=== PATIENT | female | born 1990 | race Caucasian/White ===

== ENCOUNTER 2020-08-11 09:04 | Outpatient (RCR) | payer OTHER, SELFPAY ==
[2020-08-11 10:20] VITALS: BP 142/90; PULSE 97
[2020-08-11 10:49] LABS: Basophils Percent Auto 0.3 % (0.2-1.2); Eosinophils Absolute Auto 0.2 K/mm3 (0-0.3); Eosinophils Percent Auto 1.2 % (0-4.4); Hematocrit 37.6 % (37.0-47.0); Hemoglobin 12.3 g/dL (12.0-15.0); Immature Granulocyte Absolute 0.19 K/mm3 (0.00-0.031); Immature Granulocyte Percent A 1.5 % (0-0.5); Lymphocytes Absolute Auto 1.98 K/mm3 (0.9-3.2); Lymphocytes Percent Auto 15.3 % (18.3-44.2); Mean Corpuscular HGB Conc 32.7 g/dl (32-36); Mean Corpuscular Hemoglobin 26.4 pg (26-34); Mean Corpuscular Volume 80.7 fl (80-100); Mean Platelet Volume 9.8 fl (7.4-10.4); Monocytes Absolute Auto 0.7 K/mm3 (0.1-0.6); Monocytes Percent Auto 5.7 % (2.6-8.5); Neutrophils Absolute Auto 9.8 K/mm3 (1.3-6.7); Platelet Count Result 289 k/mm3 (150-375); Red Blood Count 4.66 M/mm3 (4.2-5.4); Red Cell Distribution Width 15.3 % (11.5-14.5); White Blood Count 12.9 K/mm3 (4.5-10.0)
[2020-08-11 10:54] LABS: Add Urine Microscopic? NO; Appearance Urine Clear (Clear); Bilirubin Urine Negative (Negative); Blood Urine Negative (Negative); Color Urine Straw (Yellow); Glucose Urine UA Negative (Negative); Ketones Urine Negative (Negative); Leukocyte Esterase Ur Negative LEU/UL (NEGATIVE); Nitrate Urine Negative (Negative); Protein Urine Negative (Negative); Specific Grav Ur 1.006 (1.001-1.035); Urobilinogen Urine Negative mg/dL (<2.0)
[2020-08-11 11:05] LABS: Alanine Aminotransferase 9 U/L (4-35); Albumin Level 3.3 g/dL (3.5-5.1); Alkaline Phosphatase 84 U/L (38-126); Anion Gap 7 mmol/L (8-16); Aspartate Amino Transferase 14 U/L (14-36); Bilirubin,Total 0.2 mg/dL (0.2-1.3); Blood Urea Nitrogen 11 mg/dL (7-17); Calcium 9.4 mg/dL (8.4-10.2); Carbon Dioxide 25 mmol/L (22-30); Chloride 104 mmol/L (98-107); Estimated Glomerular Filt Rate > 60; Glucose 125 mg/dL (65-105); Potassium 4.3 mmol/L (3.4-5.0); Sodium 136 mmol/L (137-145); Uric Acid 3.2 mg/dL (2.5-7.5)
== END 2020-08-21 08:01 | disposition home or self-care (01) ==
LOC: ANHOBOP 09:04
PROVIDERS: Visit Provider Obstetrics & Gynecology Gynecology
DX: O24.419 Gestational diabetes mellitus in pregnancy, unspecified control (principal); Z3A.38 38 weeks gestation of pregnancy
CPT/HCPCS: 36415; 59025; 80053; 81003; 84550; 85025

== ENCOUNTER 2020-08-18 05:50 | Inpatient (IN) | payer OTHER, SELFPAY ==
[2020-08-18] VITALS (39 sets, daily range): BP systolic 84–145; BP diastolic 64–102; PULSE 89–106; TEMP 35.8–36.2; BMI 47.1
[2020-08-18 06:57] LABS: Basophils Percent Auto 0.3 % (0.2-1.2); Eosinophils Absolute Auto 0.1 K/mm3 (0-0.3); Eosinophils Percent Auto 1.2 % (0-4.4); Immature Granulocyte Absolute 0.16 K/mm3 (0.00-0.031); Immature Granulocyte Percent A 1.4 % (0-0.5); Lymphocytes Absolute Auto 2.06 K/mm3 (0.9-3.2); Lymphocytes Percent Auto 18.2 % (18.3-44.2); Mean Corpuscular HGB Conc 32.4 g/dl (32-36); Mean Corpuscular Volume 80.1 fl (80-100); Mean Platelet Volume 9.7 fl (7.4-10.4); Monocytes Absolute Auto 0.5 K/mm3 (0.1-0.6); Monocytes Percent Auto 4.5 % (2.6-8.5); Neutrophils Absolute Auto 8.4 K/mm3 (1.3-6.7); Neutrophils Percent Auto 74.4 % (45.5-73.1); Platelet Count Result 266 k/mm3 (150-375); Red Blood Count 4.62 M/mm3 (4.2-5.4); Red Cell Distribution Width 15.4 % (11.5-14.5); White Blood Count 11.3 K/mm3 (4.5-10.0)
[2020-08-18] MEDS: LACTATED RINGERS 1,000 ML 125 ML IV CONT (07:02)
[2020-08-18] MEDS: OXYTOCIN 30 UNITS/NS 500 ML 30 UNITS/500 ML BAG IV CONT (07:06)
--- NOTE | 2020-08-18 07:25 | LDADM ---
This patient, Nani Lyons, was admitted to Labor/Delivery/Recovery 104 on 08/18/20 at 05:50. Plans for labor, pain management and were discussed with patient. Patient/family oriented to hospital policies and general routines including ID bracelet, bed and alarms, visiting hours, pain management, procedures, bathroom and other care routines, personal items, smoking policy, room service/diet and guest tray routines, security routines, and visiting hours. Patient/Family are encouraged to report perceived risks to care and to ask questions if they do not understand what they are told or what they should do. See OBIX for further documentation.
[2020-08-18 09:01] LABS: Rapid Plasma Reagin Non-Reactive (NonReactive)
--- NOTE | 2020-08-18 10:23 | WPDANESEPP ---
Anes - Eval Pre Procedure Procedure: labor epidural Date/Time: 08/18/20 10:23 Preop Diagnosis: labor pain Pre Op Diagnosis: Induction of Labor Patient Data Age: 30 Gender: F Height: 5 ft 7 in Weight: 136.5 kg Last Vital Signs Temp 36.1 C L 08/18/20 06:40 Pulse 100 08/18/20 10:16 BP 119/74 08/18/20 10:16 Allergies Allergy/AdvReac Type Severity Reaction Status Date / Time NKDA Allergy Unknown Unknown Uncoded 07/26/20 13:41 Home Medications Medication Instructions Recorded Confirmed Type aspirin [Adult Low Dose Aspirin] 81 mg PO DAILY 07/26/20 07/26/20 History ergocalciferol (vitamin D2) 1,250 mcg PO WEEKLY 07/26/20 07/26/20 History [Vitamin D2] ferrous sulfate [Iron (ferrous 325 mg PO BID 07/26/20 07/26/20 History sulfate)] insulin NPH isoph U-100 human 34 unit SUBCUT 07/26/20 History [Humulin N NPH U-100 Insulin] insulin NPH isoph U-100 human 88 unit SUBCUT 07/26/20 History [Humulin N NPH U-100 Insulin] insulin lispro [Humalog U-100 34 unit SUBCUT 07/26/20 History Insulin] insulin lispro [Humalog U-100 50 unit SUBCUT 07/26/20 History Insulin] [id number] 1 cap PO 07/26/20 History [One-A-Day -1] Laboratory Tests 08/18/20 08/18/20 08/18/20 06:49 06:49 06:49 WBC 11.3 K/mm3 H K/mm3 (4.5-10.0) RBC 4.62 M/mm3 M/mm3 (4.2-5.4) Hgb 12.0 g/dL g/dL (12.0-15.0) Hct 37.0 % % (37.0-47.0) MCV 80.1 fl fl (80-100) MCH 26.0 pg pg (26-34) MCHC 32.4 g/dl g/dl (32-36) RDW 15.4 % H % (11.5-14.5) Plt Count 266 k/mm3 k/mm3 (150-375) MPV 9.7 fl fl (7.4-10.4) Immature Gran % (Auto) 1.4 % H % (0-0.5) Neut % (Auto) 74.4 % H % (45.5-73.1) Lymph % (Auto) 18.2 % L % (18.3-44.2) [place] % (Auto) 4.5 % % (2.6-8.5) Eos % (Auto) 1.2 % % (0-4.4) Baso % (Auto) 0.3 % % (0.2-1.2) Lymph # (Auto) 2.06 K/mm3 K/mm3 (0.9-3.2) [place] # (Auto) 0.5 K/mm3 K/mm3 (0.1-0.6) Eos # (Auto) 0.1 K/mm3 K/mm3 (0-0.3) Baso # (Auto) 0.0 K/mm3 K/mm3 (0.0-0.1) Abs Immat Gran (auto) 0.16 K/mm3 H K/mm3 (0.00-0.031) Absolute Neuts (auto) 8.4 K/mm3 H K/mm3 (1.3-6.7) Absolute Nucleated RBC 0.0 K/mm3 K/mm3 (0.0-0.012) Nucleated RBC % 0.0 % % (0.0-0.2) RPR Non-reactive (NonReactive) Blood Type O Positive Antibody Screen Negative Patient hx anesthesia problems: none Family hx anesthesia problems: none PMFSH Family History Family History (Updated 07/26/20 @ 14:01 by Ruperto Alvarez RN) Father Diabetes mellitus Acute myocardial infarction Mother OCD (obsessive compulsive disorder) ADHD Hypertension Endometriosis Grandparent Diabetes mellitus Grandparent Endometriosis Lung cancer Social History Social History Smoking status: Never smoker Second hand tobacco smoke exposure: No Substance use: never Spiritual care concerns: No Exam Day of Procedure 08/18/20 10:23
[2020-08-18 10:53] LABS: Glucose Point of Care 77 (65-105)
--- NOTE | 2020-08-18 11:06 | WPDOBADMIT ---
Obstetrics - Admit Note Admission Note: record reviewed. No pertinent additions to the history and/or any subsequent changes in the physical findings that are not consistent with the expected course of the were found. Additions to the history and/or subsequent changes in the physical findings follow. Here at 39 wks for MIL for GDMA2. Cervix still FT/50/-2 anterior. Continue pitocin. FHTs reactive.
[2020-08-18 14:46] LABS: Glucose Point of Care 75 (65-105)
[2020-08-18] MEDS: DINOPROSTONE 10 MG VAG INSERT VAGINAL (16:04)
[2020-08-18 16:52] LABS: Glucose Point of Care 111 (65-105)
[2020-08-18] MEDS: INSULIN ASPART (*BKC) 100 UNITS/ML 50 UNITS SUB-Q (20:28)
[2020-08-18 22:05] LABS: Glucose Point of Care 151 (65-105)
[2020-08-18] MEDS: INSULIN HUMAN NPH (*BKC) 100 UNITS/ML 88 UNITS SUB-Q (22:32)
[2020-08-19] VITALS (64 sets, daily range): BP systolic 113–158; BP diastolic 71–121; PULSE 83–99; TEMP 35.7–36.3; O2SAT 98–99
[2020-08-19 02:40] LABS: Glucose Point of Care 74 (65-105)
[2020-08-19] MEDS: INSULIN ASPART (*BKC) 100 UNITS/ML 34 UNITS SUB-Q (05:04)
[2020-08-19] MEDS: LACTATED RINGERS 1,000 ML 125 ML IV CONT ×2 (05:40→15:38)
[2020-08-19 07:05] LABS: Glucose Point of Care 140 (65-105)
[2020-08-19 09:57] LABS: Glucose Point of Care 58 (65-105)
--- NOTE | 2020-08-19 10:19 | PM.OBPNVD ---
OB - PN: Subj Subjective Date/time seen: 08/19/20 10:19 no change yesterday with cervix on Pitocin so given Cervadil x 12 hours now on pitocin and cervix is /-3 AROM with meconium noted continue pitocin continue DM mgmt OB - PN: Obj Data Labs CBC & Chem 7: 08/18/20 06:49 Labs: Laboratory Results - last 24 hr 08/18/20 08/18/20 08/18/20 10:50 14:43 16:46 POC Capillary Glucose 77 75 111 H 08/18/20 08/19/20 08/19/20 22:02 02:37 06:35 POC Capillary Glucose 151 H 74 140 H 08/19/20 09:52 POC Capillary Glucose 58 L* OB - PN A/P Time Spent With Patient Time: Total time spent is greater than 50% in coordination of care (as documented) at patient's floor/unit and/or counseling patient:
[2020-08-19 13:23] LABS: Glucose Point of Care 60 (65-105)
[2020-08-19 15:54] LABS: Glucose Point of Care 70 (65-105)
[2020-08-19 17:54] LABS: Glucose Point of Care 73 (65-105)
[2020-08-19 20:45] LABS: Glucose Point of Care 76 (65-105)
[2020-08-19 22:22] LABS: Glucose Point of Care 75 (65-105)
[2020-08-20] VITALS (81 sets, daily range): BP systolic 91–149; BP diastolic 49–104; PULSE 78–139; RESP 18–20; TEMP 35.6–37.6; O2SAT 91–100
[2020-08-20 00:27] LABS: Glucose Point of Care 67 (65-105)
[2020-08-20 01:26] LABS: Glucose Point of Care 114 (65-105)
[2020-08-20 04:16] LABS: Glucose Point of Care 82 (65-105)
[2020-08-20] MEDS: fentaNYL CITRATE INJ (*CRX) 100 MCG/2 ML VIAL 50 MCG IV PUSH (06:09)
[2020-08-20] MEDS: AMPICILLIN 2 GM/NS 100 ML 2 GM/100 ML BAG IVPB (06:45)
[2020-08-20 06:55] LABS: Glucose Point of Care 91 (65-105)
[2020-08-20] MEDS: LACTATED RINGERS 1,000 ML 125 ML IV CONT (06:58)
[2020-08-20 09:46] LABS: Glucose Point of Care 82 (65-105)
[2020-08-20] MEDS: AMPICILLIN 1 GM/NS 50 ML 1 GM/50 ML BAG IVPB (10:20)
--- NOTE | 2020-08-20 11:18 | PM.OBPRVD ---
OB - Delivery Note Procedure Delivery date: 08/20/20 Procedure: events: Gestational Diabetes, Labor Induction and Prolonged Rupture of Membrane Intrapartal events: None Induction method: AROM, per pitocin protocol and per cervidil protocol Delivery monitor: external FHT and internal uterine Route of delivery: Laceration Description: None Specimen: Yes (placenta-meconium stained and bilobed) Quantitative Blood Loss: 110 Anesthesia type: Epidural Disposition: PACU [place] Baby Date of : 08/20/20 Weeks of gestation at delivery: 39 Infant gender: Female presentation: vertex Placenta delivery description: Spontaneous cord vessel description: 3 Vessels and Nuchal Cord score one minute: 8 score five minutes: 9
--- NOTE | 2020-08-20 11:19 | PM.OBDSVD ---
DS: Admitting Diagnosis Admitting Diagnosis Admitting Diagnosis: Induction of Labor IUP 39 wks GDMA2 DS: Discharge Diagnosis Discharge Diagnosis (1) 39 weeks gestation of : Code(s): Z3A.39 - 39 weeks gestation of Status: Acute (2) GDM, class A2: Code(s): O24.419 - Gestational diabetes mellitus in , unspecified control Status: Acute (3) (normal spontaneous vaginal delivery): Code(s): O80 - Encounter for full-term uncomplicated delivery Status: Acute OB - DS: Summary OB Procedures : NST and Ultrasound OB Procedures Intrapartum: Spontaneous Vag Delivery OB Procedures: : None Peripartum Data Infant Delivery Method: Natural Vaginal Laceration Description: None complications: none Status at Discharge Functional status at discharge: independent ambulation Overall status at discharge: patient is progressing back to baseline Time Spent with Patient Time attestation: Total time spent providing and/or coordinating discharge services: DS: Data Data Completed and Pending Labs on day of discharge: Labs from last 24 hours 08/20/20 08/20/20 08/20/20 09:40 06:53 04:09 POC Capillary Glucose 82 91 82 08/20/20 08/20/20 08/19/20 01:23 00:25 22:19 POC Capillary Glucose 114 H 67 75 08/19/20 08/19/20 08/19/20 20:36 17:51 15:44 POC Capillary Glucose 76 73 70 08/19/20 13:20 POC Capillary Glucose 60 L Discharge Plan Discharge Attending physician on discharge: Vera Vazquez Discharging Clinician: Vera Vazquez Anticipated Discharge Date/Time: 08/22/20 11:20 Patient Disposition: Home, Self-Care Activity: may shower and pelvic rest Diet: diabetic Patient Instructions: Antibiotic Form Stand Alone Forms: General Discharge Information Follow-up/Referrals: Vera Vazquez MD [Physician] - 6 Weeks Discharge Medications: Continued ferrous sulfate [Iron (ferrous sulfate)] 325 mg (65 mg iron) Tablet 325 mg PO BID RF: 0 ergocalciferol (vitamin D2) [Vitamin D2] 1,250 mcg (50,000 unit) Capsule 1,250 mcg PO WEEKLY RF: 0 One-A-Day -1 27 mg iron- 800 mcg-235 mg Capsule 1 cap PO DAILY RF: 0 Discontinued Adult Low Dose Aspirin 81 mg Tablet 81 mg PO DAILY RF: 0 Humulin N NPH U-100 Insulin 100 unit/mL Suspension 88 unit SUBCUT HS RF: 0 Humulin N NPH U-100 Insulin 100 unit/mL Suspension 34 unit SUBCUT QAM RF: 0 insulin lispro [Humalog U-100 Insulin] 100 unit/mL Solution 50 unit subcut QPM RF: 0 insulin lispro [Humalog U-100 Insulin] 100 unit/mL Solution 34 unit subcut QAM RF: 0 Date of admission: 08/18/20 05:50 Primary Care Provider: PHYSICIAN,CHECK WRITER SALESPERSON Admitting Provider: Vera Vazquez Attending physician on admission: Vera Vazquez Condition: Stable Care Plan Goals: continue accuchecks and call values in 1 week to office
[2020-08-20] MEDS: OXYTOCIN 30 UNITS/NS 500 ML 30 UNITS/500 ML BAG 125 UNITS IV CONT (11:31)
[2020-08-20 13:58] LABS: Glucose Point of Care 183 (65-105)
--- NOTE | 2020-08-20 14:09 | PC.NURSE ---
Patient transferred to post room #285 per wheelchair from labor and delivery. Support person present. Oriented to unit, room, information board, rooming in, admission packet and security measures. Patient verbalizes understanding.
[2020-08-20 18:46] LABS: Glucose Point of Care 182 (65-105)
[2020-08-21 04:53] LABS: Hematocrit 32.9 % (37.0-47.0); Hemoglobin 10.8 g/dL (12.0-15.0)
[2020-08-21 07:25] VITALS: BP 145/88; PULSE 98; RESP 17; TEMP 36.7
[2020-08-21 07:34] LABS: Glucose Point of Care 118 (65-105)
--- NOTE | 2020-08-21 08:20 | PC.NURSE ---
PT introductions made and plan of care discussed per post , pain management, breast feeding, daily care activities. PT verbalized understanding of such care.
--- NOTE | 2020-08-21 08:25 | PM.OBPNVD ---
OB - PN: Subj Subjective Date/time seen: 08/21/20 08:25 Patient comments: no complaints and pain well controlled baby status: doing well OB - PN: Obj Data Labs CBC & Chem 7: 08/21/20 04:40 Labs: Laboratory Results - last 24 hr 08/20/20 08/20/20 08/20/20 09:40 13:56 18:44 Hgb Hct POC Capillary Glucose 82 183 H 182 H 08/21/20 08/21/20 04:40 07:32 Hgb 10.8 L Hct 32.9 L POC Capillary Glucose 118 H OB - PN A/P Assessment and Plan (1) (normal spontaneous vaginal delivery): Code(s): O80 - Encounter for full-term uncomplicated delivery Status: Acute Assessment and Plan: dc home (2) GDM, class A2: Code(s): O24.419 - Gestational diabetes mellitus in , unspecified control Status: Acute Assessment and Plan: continue diet and accuchecks and call office in 1 week with numbers Time Spent With Patient Time: Total time spent is greater than 50% in coordination of care (as documented) at patient's floor/unit and/or counseling patient: Exam : Bimanual exam- vagina & uterus: other (Uterus firm, nt @U)
[2020-08-21 09:37] VITALS: PULSE 98; RESP 17; O2SAT 97
[2020-08-21] MEDS: DOCUSATE SODIUM 100 MG CAPSULE PO ×2 (09:37→16:53)
[2020-08-21] MEDS: MULTIVIT/MIN/PREN/FOL AC/IRON TABLET 1 TAB PO (09:37)
[2020-08-21] MEDS: IBUPROFEN 600 MG TABLET PO ×2 (09:37→16:54)
--- NOTE | 2020-08-21 11:00 | WPDANLDPN2 ---
Anes-Prog Note L&D Date/Time: 08/21/20 11:00 Comfortable throughout: labor and delivery Neuraxial method: epidural Epidural/Spinal procedure site: clean & non-tender Neuro status: Neuro function grossly intact. Cardiovascular status: normal Respiratory status: normal Airway patency: baseline Mental status: baseline Post-Op hydration status: normal Vital Signs: Last Vital Signs Temp 36.7 C 08/21/20 07:25 Pulse 98 08/21/20 07:25 Resp 17 08/21/20 07:25 BP 145/88 H 08/21/20 07:25 Pulse Ox 97 08/20/20 08:38 Pain score (VAS): 0 I/O: Intake & Output 08/20/20 08/21/20 08/21/20 23:59 07:59 15:59 Intake Total 500 Output Total 50 Balance 450 Post-procedural complaints: none Patient feedback: Patient satisfied with anesthetic care.
[2020-08-21 11:03] LABS: Glucose Point of Care 133 (65-105)
[2020-08-21 14:50] LABS: Glucose Point of Care 114 (65-105)
[2020-08-21] MEDS: ACETAMINOPHEN 325 MG TABLET 650 MG PO (16:53)
[2020-08-21 20:13] LABS: Glucose Point of Care 125 (65-105)
[2020-08-21 20:15] VITALS: BP 139/82; PULSE 90; RESP 18; TEMP 36.1; O2SAT 98
--- NOTE | 2020-08-21 21:14 | PC.NURSE ---
1800 08/11/2020 Patient viewed the discharge video Mother & Baby Care, The First Two Weeks . Patient was given the opportunity and encouraged to ask questions. Patient verbalized understanding of information shared and has been given the mother/baby guide for home reference.
[2020-08-22] MEDS: IBUPROFEN 600 MG TABLET PO (05:29)
[2020-08-22 07:02] LABS: Glucose Point of Care 90 (65-105)
[2020-08-22] MEDS: MULTIVIT/MIN/PREN/FOL AC/IRON TABLET 1 TAB PO (07:29)
--- NOTE | 2020-08-22 07:45 | PM.OBPNVD ---
OB - PN: Subj Subjective Date/time seen: 08/22/20 07:45 Patient comments: no complaints and pain well controlled baby status: doing well OB - PN: Obj Data Labs CBC & Chem 7: 08/21/20 04:40 Labs: Laboratory Results - last 24 hr 08/21/20 08/21/20 08/21/20 11:01 14:48 20:11 POC Capillary Glucose 133 H 114 H 125 H 08/22/20 06:59 POC Capillary Glucose 90 OB - PN A/P Assessment and Plan (1) GDM, class A2: Code(s): O24.419 - Gestational diabetes mellitus in , unspecified control Status: Acute Assessment and Plan: call 1 week with sugars improved last 24 hr Plan day: 2 Plan: routine care, discharge home, follow up 6 weeks and other (plans oc's for bc) Time Spent With Patient Time: Total time spent is greater than 50% in coordination of care (as documented) at patient's floor/unit and/or counseling patient: Exam : Bimanual exam- vagina & uterus: other (Uterus firm, nt @U)
[2020-08-22 07:55] VITALS: BP 146/91; PULSE 89; RESP 18; TEMP 36.4
[2020-08-22 09:12] LABS: Glucose Point of Care 147 (65-105)
[2020-08-23 08:25] VITALS: BP 141/82; PULSE 78; RESP 20; TEMP 36.9; O2SAT 100
== END 2020-08-22 13:08 | disposition home or self-care (01) | DRG 560 ==
LOC: ANHLDR 08-20 11:21 → ANHOB2 08-20 14:13
PROVIDERS: Admitting Provider Obstetrics & Gynecology Gynecology; Visit Provider Obstetrics & Gynecology Gynecology
DX: O24.429 Gestational diabetes mellitus in childbirth, unspecified control (principal); O42.92 Full-term premature rupture of membranes, unspecified as to length of time between rupture and onset of labor; O77.0 Labor and delivery complicated by meconium in amniotic fluid; O63.9 Long labor, unspecified; O76 Abnormality in fetal heart rate and rhythm complicating labor and delivery; O69.81X0 Labor and delivery complicated by cord around neck, without compression, not applicable or unspecified; Z3A.39 39 weeks gestation of pregnancy; Z37.0 Single live birth
CPT/HCPCS: 36415; 85014; 85018; 85025; 86592; 86850; 86900; 86901; 88307; A9270; J0131; J0290; J1815; J2590; J2795; J3010; J7120

== ENCOUNTER 2021-06-22 16:22 | Observation (INO) | payer OTHER, SELFPAY ==
--- NOTE | 2021-06-22 16:34 | PC.NURSE ---
1623- pt amb to ED intake with c/o constant abd cramping, pt states she is 20 wks , she reports Dr. Vazquez told her she had an abn US> pt states her EDC 11/03/21, LMP 02/09, OB George, vianey 3, p2. Pt states she is having constant cramping, no bleeding. Report called to TAYLOR Everett in OB. Pt taken directly to OB via w/c per Makenzie David
[2021-06-22 17:09] VITALS: BMI 43.5
[2021-06-22 17:09] LABS: Add Urine Microscopic? NO; Appearance Urine Clear (Clear); Bilirubin Urine Negative (Negative); Blood Urine Negative (Negative); Color Urine Straw (Yellow); Glucose Urine UA Negative (Negative); Ketones Urine Negative (Negative); Leukocyte Esterase Ur Negative LEU/UL (NEGATIVE); Nitrate Urine Negative (Negative); Protein Urine Negative (Negative); Specific Grav Ur 1.006 (1.001-1.035); Urobilinogen Urine Negative mg/dL (<2.0)
--- NOTE | 2021-06-22 17:09 | OBADM ---
This patient, Nani Lyons, admitted to the OB room OB Post 111 for observation. Patient/family oriented to hospital policies and general routines including ID bracelet, bed and alarms, visiting hours, pain management, procedures, bathroom and other care routines, personal items, smoking policy, room service/diet, and visiting hours. Patient/Family are encouraged to report perceived risks to care and to ask questions if they do not understand what they are told or what they should do.
--- NOTE | 2021-07-11 10:04 | PM.OBTRLD ---
OB - Triage/Final Diagnosis Visit Information Comments/Additional reasons for admission: I have assessed the risk for this patient, Nani Lyons, and determined that she would benefit from observation care. Evaluation Laboratory results: Laboratory Tests 06/22/21 16:49 Urine Color Straw Urine Appearance Clear Urine pH 6.0 Ur Specific [place] 1.006 Urine Protein Negative Urine Glucose (UA) Negative Urine Ketones Negative Ur Blood (Man) Negative Urine Nitrate Negative Urine Bilirubin Negative Urine Urobilinogen Negative Ur Leukocyte Esterase Negative Final Diagnosis (1) False labor: Code(s): O47.9 - False labor, unspecified Status: Acute
== END 2021-06-22 18:08 | disposition home or self-care (01) ==
PROVIDERS: Admitting Provider Obstetrics & Gynecology; Visit Provider Obstetrics & Gynecology
DX: O47.03 False labor before 37 completed weeks of gestation, third trimester (principal); Z3A.20 20 weeks gestation of pregnancy
CPT/HCPCS: 81003; 87086; 87088; G0378; G0379

== ENCOUNTER 2021-10-26 15:15 | Outpatient (RCR) | payer OTHER, SELFPAY ==
[2021-09-13 12:48] LABS: Hematocrit 33.5 % (37.0-47.0); Mean Corpuscular HGB Conc 32.8 g/dl (32-36); Mean Corpuscular Hemoglobin 27.2 pg (26-34); Mean Corpuscular Volume 82.9 fl (80-100); Mean Platelet Volume 9.4 fl (7.4-10.4); Platelet Count Result 230 k/mm3 (150-375); Red Blood Count 4.04 M/mm3 (4.2-5.4); Red Cell Distribution Width 14.2 % (11.5-14.5); White Blood Count 10.2 K/mm3 (4.5-10.0)
[2021-09-13 13:04] LABS: Alanine Aminotransferase 10 U/L (4-35); Albumin Level 3.4 g/dL (3.5-5.1); Alkaline Phosphatase 67 U/L (38-126); Anion Gap 7 mmol/L (8-16); Aspartate Amino Transferase 12 U/L (14-36); Bilirubin,Total 0.2 mg/dL (0.2-1.3); Blood Urea Nitrogen 7 mg/dL (7-17); Calcium 8.8 mg/dL (8.4-10.2); Carbon Dioxide 23 mmol/L (22-30); Chloride 100 mmol/L (98-107); Estimated Glomerular Filt Rate > 60; Glucose 107 mg/dL (65-110); Potassium 3.8 mmol/L (3.4-5.0); Sodium 130 mmol/L (137-145); Uric Acid 3.5 mg/dL (2.5-7.5)
[2021-09-13 13:29] VITALS: BP 132/73; PULSE 103
[2021-10-26 16:10] VITALS: BP 138/81; PULSE 117
== END 2021-11-13 09:33 | disposition home or self-care (01) ==
LOC: ANHOBOP 15:15
PROVIDERS: Visit Provider Obstetrics & Gynecology Gynecology
DX: O24.419 Gestational diabetes mellitus in pregnancy, unspecified control (principal); Z3A.32 32 weeks gestation of pregnancy; Z3A.38 38 weeks gestation of pregnancy
CPT/HCPCS: 36415; 59025; 80053; 84550; 85027

== ENCOUNTER 2021-10-27 22:11 | Observation (INO) | payer OTHER, SELFPAY ==
[2021-10-27 22:25] VITALS: RESP 20; TEMP 36.8
[2021-10-27 22:26] VITALS: BP 133/92; PULSE 131
[2021-10-27 22:31] VITALS: BP 138/89; PULSE 132
[2021-10-27 22:43] VITALS: BMI 47.2
[2021-10-27] MEDS: ONDANSETRON INJ 4 MG/2 ML VIAL IV PUSH (22:45)
[2021-10-27] MEDS: LACTATED RINGERS 1,000 ML 999 ML IV CONT (22:46)
[2021-10-27 23:01] VITALS: BP 131/73; PULSE 126
[2021-10-27 23:17] VITALS: BP 109/57; PULSE 122
[2021-10-27 23:31] VITALS: BP 88/56; PULSE 126
[2021-10-28 00:21] VITALS: PULSE 123; O2SAT 98
[2021-10-28 00:26] VITALS: PULSE 129; O2SAT 98
[2021-10-28 00:31] VITALS: PULSE 128; O2SAT 99
--- NOTE | 2021-10-28 01:06 | OBADM ---
This patient, Nani Lyons, admitted to the OB room Labor/Delivery/Recovery 106 for observation. Patient/family oriented to hospital policies and general routines including ID bracelet, bed and alarms, visiting hours, pain management, procedures, bathroom and other care routines, personal items, smoking policy, room service/diet, and visiting hours. Patient/Family are encouraged to report perceived risks to care and to ask questions if they do not understand what they are told or what they should do.
--- NOTE | 2021-10-30 08:30 | PM.OBTRLD ---
OB - Triage/Final Diagnosis Visit Information Reason for evaluation: threatened labor Comments/Additional reasons for admission: I have assessed the risk for this patient, Nani Lyons, and determined that she would benefit from observation care.
== END 2021-10-28 01:00 | disposition home or self-care (01) ==
PROVIDERS: Admitting Provider Obstetrics & Gynecology; Visit Provider Obstetrics & Gynecology
DX: O47.03 False labor before 37 completed weeks of gestation, third trimester (principal); Z3A.39 39 weeks gestation of pregnancy
CPT/HCPCS: 96374; G0378; G0379; J2405; J7120

== ENCOUNTER 2021-10-29 04:48 | Inpatient (IN) | payer OTHER, SELFPAY ==
[2021-10-29] VITALS (194 sets, daily range): BP systolic 59–167; BP diastolic 19–126; PULSE 98–151; RESP 16–20; TEMP 36.3–37.2; O2SAT 79–100; BMI 47.2
[2021-10-29] MEDS: LACTATED RINGERS 1,000 ML 125 ML IV CONT ×2 (05:50→09:11)
[2021-10-29 05:59] LABS: Glucose Point of Care 139 mg/dl (65-105)
[2021-10-29 06:39] LABS: Basophils Percent Auto 0.2 % (0.2-1.2); Eosinophils Percent Auto 0.1 % (0-4.4); Hematocrit 46.2 % (37.0-47.0); Hemoglobin 14.1 g/dL (12.0-15.0); Immature Granulocyte Absolute 0.73 K/mm3 (0.00-0.031); Immature Granulocyte Percent A 6.1 % (0-0.5); Lymphocytes Absolute Auto 1.11 K/mm3 (0.9-3.2); Lymphocytes Percent Auto 9.3 % (18.3-44.2); Mean Corpuscular HGB Conc 30.5 g/dl (32-36); Mean Corpuscular Hemoglobin 26.6 pg (26-34); Mean Platelet Volume 9.8 fl (7.4-10.4); Monocytes Absolute Auto 0.7 K/mm3 (0.1-0.6); Monocytes Percent Auto 5.9 % (2.6-8.5); Neutrophils Absolute Auto 9.4 K/mm3 (1.3-6.7); Neutrophils Percent Auto 78.4 % (45.5-73.1); Platelet Count Result 265 k/mm3 (150-375); Red Blood Count 5.31 M/mm3 (4.2-5.4); Red Cell Distribution Width 16.2 % (11.5-14.5); White Blood Count 11.9 K/mm3 (4.5-10.0)
[2021-10-29] MEDS: INSULIN HUMAN NPH (*BKC) 100 UNITS/ML 32 UNITS SUB-Q (06:40)
--- NOTE | 2021-10-29 06:51 | WPDANESEPP ---
Anes - Eval Pre Procedure Procedure: labor epidural Date/Time: 10/29/21 06:51 Surgeon: justine Pre Op Diagnosis: Induction of Labor Patient Data Age: 31 Gender: F Height: 1.73 m Weight: 141 kg Last Vital Signs Temp 36.8 C 10/29/21 06:45 Pulse 124 H 10/29/21 06:44 Resp 18 10/29/21 06:45 BP 155/100 H 10/29/21 06:44 Allergies Allergy/AdvReac Type Severity Reaction Status Date / Time No Known Drug Allergies Allergy Unknown Verified 08/21/20 07:32 Home Medications Medication Instructions Recorded Confirmed Type ferrous sulfate [Iron (ferrous 325 mg PO BID 07/26/20 10/27/21 History sulfate)] blood sugar diagnostic #200 ea 01/01/21 Rx Humulin N NPH U-100 Insulin 32 unit SUBCUT QAM 09/13/21 10/05/21 History Humulin N NPH U-100 Insulin 98 unit SUBCUT QPM 09/13/21 10/27/21 History insulin lispro [Humalog U-100 26 unit SUBCUT QACBREAK 09/13/21 10/27/21 History Insulin] insulin lispro [Humalog U-100 36 unit SUBCUT QACDINNER 09/13/21 10/05/21 History Insulin] PNV cmb#95-ferrous fumarate-FA 1 tablet PO DAILY 10/05/21 10/27/21 History [] metformin 1,000 mg PO BID 10/05/21 10/27/21 History Laboratory Tests 10/29/21 10/29/21 10/29/21 05:48 05:49 05:49 WBC Pending RBC Pending Hgb Pending Hct Pending MCV Pending MCH Pending MCHC Pending RDW Pending Plt Count Pending MPV Pending Immature Gran % (Auto) Pending Neut % (Auto) Pending Lymph % (Auto) Pending [place] % (Auto) Pending Eos % (Auto) Pending Baso % (Auto) Pending Lymph # (Auto) Pending [place] # (Auto) Pending Eos # (Auto) Pending Baso # (Auto) Pending Abs Immat Gran (auto) Pending Absolute Neuts (auto) Pending Absolute Nucleated RBC Pending Nucleated RBC % Pending POC Capillary Glucose 139 mg/dl H mg/dl (65-105) RPR Pending Patient hx anesthesia problems: none Family hx anesthesia problems: none Results Review: All pre-operative results and documents have been reviewed as part of the pre-operative evaluation. [facility] Past Medical History Medical History (Updated 07/11/21 @ 10:05 by Teddy Gibson MD) False labor Family History Family History Father Diabetes mellitus Acute myocardial infarction Mother OCD (obsessive compulsive disorder) ADHD Hypertension Endometriosis Grandparent Diabetes mellitus Grandparent Endometriosis Lung cancer Social History Social History (Updated 12/27/20 @ 13:48 by Jalyn Hughes) Smoking status: Never smoker Second hand tobacco smoke exposure: No Alcohol intake: current Alcohol use details: Drinks sociall, 4-5 times / year Substance use: never Spiritual care concerns: No Exam Day of Procedure 10/29/21 06:51
[2021-10-29 07:14] LABS: Rapid Plasma Reagin Non-Reactive (NonReactive)
[2021-10-29 07:18] LABS: Band Neutrophils Percent 11 % (0-6); Basophils Absolute Manual 0.11 K/mm3 (0.0-0.1); Basophils Percent Manual 1 % (0-1); Lymphocytes Absolute Manual 0.35 K/mm3 (1.1-4.5); Monocytes Absolute Manual 0.23 K/mm3 (0.1-0.90); Monocytes Percent Manual 2 % (3-9); Neutrophils Absolute Manual 11.18 K/mm3 (1.7-7.2); Neutrophils Percent Manual 83 % (46-73); Total Cells Counted 100
[2021-10-29 07:19] LABS: Platelet Estimate Adequate (Adequate)
[2021-10-29] MEDS: OXYTOCIN 30 UNITS/NS 500 ML 30 UNITS/500 ML BAG IV CONT (08:00)
[2021-10-29] MEDS: FAMOTIDINE 20 MG TABLET PO (08:30)
--- NOTE | 2021-10-29 08:40 | WPDOBADMIT ---
Obstetrics - Admit Note Admission Note: record reviewed. No pertinent additions to the history and/or any subsequent changes in the physical findings that are not consistent with the expected course of the were found. Additions to the history and/or subsequent changes in the physical findings follow. Patient at 39 weeks and 2 days here for medical induction of labor secondary to diabetes. The patient reports illness over the last 3 days with nausea, vomiting, and diarrhea. She was seen on Friday and received 2L of IV fluids and Zofran. She states the nausea has improved since that point. But she has been still unable to eat normally. She did not take her insulin this morning and her Accu-Chek is 139. Therefore her insulin was given. Pulse is elevated in the 110s to 130s on admission. In addition the fetus has had tachycardia in the 150s to 160s with moderate variability. Blood pressures were initially elevated but per the RN the cuff was too small and has now been changed to a larger cuff. Blood pressure is since that time are 130s over 80s. CBC is normal for although she appears hemoconcentrated. CMP is pending. Cervix is 3cm 50% effaced-3 station. Vertex. Artificial rupture of membranes with copious amounts of clear fluid. Pitocin has been started. Continue medical induction of labor.
[2021-10-29 08:48] LABS: Alanine Aminotransferase 10 U/L (4-35); Alkaline Phosphatase 99 U/L (38-126); Anion Gap 14 mmol/L (8-16); Aspartate Amino Transferase 13 U/L (14-36); Bilirubin,Total 0.4 mg/dL (0.2-1.3); Blood Urea Nitrogen 7 mg/dL (7-17); Calcium 9.1 mg/dL (8.4-10.2); Carbon Dioxide 7 mmol/L (22-30); Chloride 108 mmol/L (98-107); Estimated CRCL calculation 149 ml/min; Estimated Glomerular Filt Rate > 60; Glucose 122 mg/dL (65-110); Potassium 4.9 mmol/L (3.4-5.0); Sodium 129 mmol/L (137-145)
--- NOTE | 2021-10-29 09:34 | WPDANESEPPF ---
Anes - Initial Pre Proc Eval Date/Time: 10/29/21 09:34 Surgeon: Vera Vazquez MD Pre Op Diagnosis: Induction of Labor Patient Data Age: 31 Gender: F Height: 1.73 m Weight: 141 kg Last Vital Signs Temp 36.8 C 10/29/21 08:35 Pulse 125 H 10/29/21 09:34 Resp 18 10/29/21 08:35 BP 129/70 10/29/21 09:34 Pulse Ox 100 10/29/21 09:30 Allergies Allergy/AdvReac Type Severity Reaction Status Date / Time No Known Drug Allergies Allergy Unknown Verified 08/21/20 07:32 Home Medications Medication Instructions Recorded Confirmed Type ferrous sulfate [Iron (ferrous 325 mg PO BID 07/26/20 10/27/21 History sulfate)] blood sugar diagnostic #200 ea 01/01/21 Rx Humulin N NPH U-100 Insulin 32 unit SUBCUT QAM 09/13/21 10/05/21 History Humulin N NPH U-100 Insulin 98 unit SUBCUT QPM 09/13/21 10/27/21 History insulin lispro [Humalog U-100 26 unit SUBCUT QACBREAK 09/13/21 10/27/21 History Insulin] insulin lispro [Humalog U-100 36 unit SUBCUT QACDINNER 09/13/21 10/05/21 History Insulin] PNV cmb#95-ferrous fumarate-FA 1 tablet PO DAILY 10/05/21 10/27/21 History [] metformin 1,000 mg PO BID 10/05/21 10/27/21 History Laboratory Tests 10/29/21 10/29/21 10/29/21 05:48 05:49 05:49 WBC 11.9 K/mm3 H K/mm3 (4.5-10.0) RBC 5.31 M/mm3 M/mm3 (4.2-5.4) Hgb 14.1 g/dL D g/dL (12.0-15.0) Hct 46.2 % % (37.0-47.0) MCV 87.0 fl fl (80-100) MCH 26.6 pg pg (26-34) MCHC 30.5 g/dl L g/dl (32-36) RDW 16.2 % H % (11.5-14.5) Plt Count 265 k/mm3 k/mm3 (150-375) MPV 9.8 fl fl (7.4-10.4) Immature Gran % (Auto) 6.1 % H % (0-0.5) Neut % (Auto) 78.4 % H % (45.5-73.1) Lymph % (Auto) 9.3 % L % (18.3-44.2) [place] % (Auto) 5.9 % % (2.6-8.5) Eos % (Auto) 0.1 % % (0-4.4) Baso % (Auto) 0.2 % % (0.2-1.2) Lymph # (Auto) 1.11 K/mm3 K/mm3 (0.9-3.2) [place] # (Auto) 0.7 K/mm3 H K/mm3 (0.1-0.6) Eos # (Auto) 0.0 K/mm3 K/mm3 (0-0.3) Baso # (Auto) 0.0 K/mm3 K/mm3 (0.0-0.1) Abs Immat Gran (auto) 0.73 K/mm3 H K/mm3 (0.00-0.031) Absolute Neuts (auto) 9.4 K/mm3 H K/mm3 (1.3-6.7) Absolute Nucleated RBC 0.0 K/mm3 K/mm3 (0.0-0.012) Total Counted 100 Neutrophils % (Manual) 83 % H % (46-73) Band Neutrophils % 11 % H % (0-6) Lymphocytes % (Manual) 3.0 % L % (18-44) Monocytes % (Manual) 2 % L % (3-9) Basophils % (Manual) 1 % % (0-1) Nucleated RBC % 0.0 % % (0.0-0.2) Abs Neuts (Manual) 11.18 K/mm3 H K/mm3 (1.7-7.2) Abs Lymphs (Manual) 0.35 K/mm3 L K/mm3 (1.1-4.5) Abs Monocytes (Manual) 0.23 K/mm3 K/mm3 (0.1-0.90) Abs Basophils (Manual) 0.11 K/mm3 H K/mm3 (0.0-0.1) Platelet Estimate Adequate (Adequate) Sodium Potassium Chloride Carbon Dioxide Anion Gap BUN Creatinine Estim Creat Clear Calc Estimated GFR Glucose POC Capillary Glucose 139 mg/dl H mg/dl (65-105) Calcium Total Bilirubin AST ALT Alkaline Phosphatase Total Protein Albumin RPR Non-reactive (NonReactive) Blood Type Antibody Screen 10/29/21 10/29/21 07:06 08:31 WBC RBC Hgb Hct MCV MCH MCHC RDW Plt Count MPV Immature Gran % (Auto) Neut % (Auto) Lymph % (Auto) [place] % (Auto) Eos % (Auto) Baso % (Auto) Lymph # (Auto) [place] # (Auto) Eos # (Auto)
[2021-10-29 10:27] LABS: Glucose Point of Care 129 mg/dl (65-105)
[2021-10-29] MEDS: INSULIN HUMAN REGULAR (*BKC) 100 UNITS in SODIUM CHLORIDE 0.9% IV 99 ML IV CONT (11:02)
[2021-10-29 12:07] LABS: Glucose Point of Care 110 mg/dl (65-105)
[2021-10-29 13:04] LABS: Glucose Point of Care 111 mg/dl (65-105)
[2021-10-29 14:24] LABS: Glucose Point of Care 99 mg/dl (65-105)
[2021-10-29 15:03] LABS: Glucose Point of Care 93 mg/dl (65-105)
[2021-10-29 16:10] LABS: Glucose Point of Care 94 mg/dl (65-105)
[2021-10-29] MEDS: ONDANSETRON INJ 4 MG/2 ML VIAL IV PUSH (16:11)
[2021-10-29 17:30] LABS: Glucose Point of Care 89 mg/dl (65-105)
[2021-10-29 18:04] LABS: Glucose Point of Care 83 mg/dl (65-105)
--- NOTE | 2021-10-29 19:21 | PM.OBPRVD ---
OB - Delivery Note Procedure Delivery date: 10/29/21 Procedure: Events: Diabetes Mellitus and Polyhydramnios Induction method: AROM and Per Pitocin Protocol Delivery monitor: External FHT and Internal Uterine Route of delivery: Laceration Description: Periurethral Specimen: Yes (placenta) Quantitative Blood Loss (ml): 75 Anesthesia type: Epidural Disposition: floor [place] Baby Date of : 10/29/21 Weeks of gestation at delivery: 39 Infant gender: Female Weight (pounds): 9 Weight (ounces): 9 presentation: vertex position: Right Occiput Anterior Placenta delivery description: Spontaneous Cord Vessel Description: 3 Vessels score one minute: 7 score five minutes: 9
--- NOTE | 2021-10-29 19:22 | PM.OBDSVD ---
DS: Admitting Diagnosis Discharge Date 10/31/21 Admitting Diagnosis IUP 39 2/7 weeks with NIDDM for MIL DS: Discharge Diagnosis Discharge Diagnosis (1) (normal spontaneous vaginal delivery): Code(s): O80 - Encounter for full-term uncomplicated delivery Status: Acute (2) Type 2 diabetes mellitus during : Code(s): O24.119 - Pre-existing type 2 diabetes mellitus, in , unspecified trimester Status: Acute OB - DS: Summary OB Procedures : NST and Ultrasound OB Procedures Intrapartum: Spontaneous Vag Delivery OB Procedures: : None Peripartum Data Infant Delivery Method: Natural Vaginal Laceration Description: Periurethral complications: none Status at Discharge Functional status at discharge: independent ambulation Overall status at discharge: patient is progressing back to baseline Time Spent with Patient Time attestation: Total time spent providing and/or coordinating discharge services: DS: Data Data Completed and Pending Labs on day of discharge: Labs from last 24 hours 10/29/21 10/29/21 10/29/21 18:02 17:05 16:03 WBC RBC Hgb Hct MCV MCH MCHC RDW Plt Count MPV Immature Gran % (Auto) Neut % (Auto) Lymph % (Auto) [place] % (Auto) Eos % (Auto) Baso % (Auto) Lymph # (Auto) [place] # (Auto) Eos # (Auto) Baso # (Auto) Abs Immat Gran (auto) Absolute Neuts (auto) Absolute Nucleated RBC Total Counted Neutrophils % (Manual) Band Neutrophils % Lymphocytes % (Manual) Monocytes % (Manual) Basophils % (Manual) Nucleated RBC % Abs Neuts (Manual) Abs Lymphs (Manual) Abs Monocytes (Manual) Abs Basophils (Manual) Platelet Estimate Sodium Potassium Chloride Carbon Dioxide Anion Gap BUN Creatinine Estim Creat Clear Calc Estimated GFR Glucose POC Capillary Glucose 83 89 94 Calcium Total Bilirubin AST ALT Alkaline Phosphatase Total Protein Albumin RPR Blood Type Antibody Screen 10/29/21 10/29/21 10/29/21 15:01 14:05 12:59 WBC RBC Hgb Hct MCV MCH MCHC RDW Plt Count MPV Immature Gran % (Auto) Neut % (Auto) Lymph % (Auto) [place] % (Auto) Eos % (Auto) Baso % (Auto) Lymph # (Auto) [place] # (Auto) Eos # (Auto) Baso # (Auto) Abs Immat Gran (auto) Absolute Neuts (auto) Absolute Nucleated RBC Total Counted Neutrophils % (Manual) Band Neutrophils % Lymphocytes % (Manual) Monocytes % (Manual) Basophils % (Manual) Nucleated RBC % Abs Neuts (Manual) Abs Lymphs (Manual) Abs Monocytes (Manual) Abs Basophils (Manual) Platelet Estimate Sodium Potassium Chloride Carbon Dioxide Anion Gap BUN Creatinine Estim Creat Clear Calc Estimated GFR Glucose POC Capillary Glucose 93 99 111 H Calcium Total Bilirubin AST ALT Alkaline Phosphatase Total Protein Albumin RPR Blood Type Antibody Screen 10/29/21 10/29/21 10/29/21 12:02 10:01 08:31 WBC RBC Hgb Hct MCV MCH MCHC RDW Plt Count MPV Immature Gran % (Auto) Neut % (Auto) Lymph % (Auto) [place] % (Auto) Eos % (Auto) Baso % (Auto) Lymph # (Auto) [place] # (Auto) Eos # (Auto) Baso # (Auto) Abs Immat Gran (auto) Absolute Neuts (auto) Absolute Nucleated RBC Total Counted Neutrophils % (Manual) Band Neutrophils % Lymphocytes % (Manual) Monocytes % (Manual) Basophils % (Manual) Nucleated RBC % Abs Neuts (Manual) Abs Lymphs (Manual) Abs Monocytes (Manual) Abs Basophils (Manual) Platelet Estimate Sodium 129 L Potassium 4.9 Chloride 108 H Carbon Dioxide 7 L Anion Gap 14 BUN 7 Creatinine 0.70 Estim Creat Clear Calc
[2021-10-29] MEDS: OXYTOCIN 30 UNITS/NS 500 ML 30 UNITS/500 ML BAG 125 UNITS IV CONT (19:57)
[2021-10-29] MEDS: IBUPROFEN 600 MG TABLET PO (22:02)
--- NOTE | 2021-10-29 22:38 | ADMGEN ---
This patient, Nani Lyons, was admitted to OB 2nd Floor Room 290-00. Patient/family oriented to hospital policies and general routines including ID bracelet, bed and alarms, visiting hours, pain management, procedures, bathroom and other care routines, personal items, smoking policy, room service/diet, and visiting hours. Information on how to activate the Rapid Response Team has been discussed. Patient/Family are encouraged to report perceived risks to care and to ask questions if they do not understand what they are told or what they should do.
[2021-10-30 04:03] VITALS: BP 114/73; PULSE 102; RESP 18; TEMP 36.8
[2021-10-30 05:44] LABS: Hematocrit 36.1 % (37.0-47.0); Hemoglobin 11.5 g/dL (12.0-15.0)
--- NOTE | 2021-10-30 07:33 | PM.OBPNVD ---
OB - PN: Subj Subjective Date/time seen: 10/30/21 07:33 Patient comments: no complaints and pain well controlled baby status: doing well OB - PN: Obj Data Labs CBC & Chem 7: 10/30/21 03:23 10/29/21 08:31 Labs: Laboratory Results - last 24 hr 10/29/21 10/29/21 10/29/21 07:06 08:31 10:01 Hgb Hct Sodium 129 L Potassium 4.9 Chloride 108 H Carbon Dioxide 7 L Anion Gap 14 BUN 7 Creatinine 0.70 Estim Creat Clear Calc 149 Estimated GFR > 60 Glucose 122 H POC Capillary Glucose 129 H Calcium 9.1 Total Bilirubin 0.4 AST 13 L ALT 10 Alkaline Phosphatase 99 Total Protein 6.0 L Albumin 3.0 L Blood Type O Positive Antibody Screen Negative 10/29/21 10/29/21 10/29/21 12:02 12:59 14:05 Hgb Hct Sodium Potassium Chloride Carbon Dioxide Anion Gap BUN Creatinine Estim Creat Clear Calc Estimated GFR Glucose POC Capillary Glucose 110 H 111 H 99 Calcium Total Bilirubin AST ALT Alkaline Phosphatase Total Protein Albumin Blood Type Antibody Screen 10/29/21 10/29/21 10/29/21 15:01 16:03 17:05 Hgb Hct Sodium Potassium Chloride Carbon Dioxide Anion Gap BUN Creatinine Estim Creat Clear Calc Estimated GFR Glucose POC Capillary Glucose 93 94 89 Calcium Total Bilirubin AST ALT Alkaline Phosphatase Total Protein Albumin Blood Type Antibody Screen 10/29/21 10/30/21 18:02 03:23 Hgb 11.5 L Hct 36.1 L Sodium Potassium Chloride Carbon Dioxide Anion Gap BUN Creatinine Estim Creat Clear Calc Estimated GFR Glucose POC Capillary Glucose 83 Calcium Total Bilirubin AST ALT Alkaline Phosphatase Total Protein Albumin Blood Type Antibody Screen OB - PN A/P Assessment and Plan (1) Type 2 diabetes mellitus during : Code(s): O24.119 - Pre-existing type 2 diabetes mellitus, in , unspecified trimester Status: Acute Assessment and Plan: Continue Metformin and accuchecks Plan day: 1 Plan: routine care, discharge home, follow up 6 weeks and other (Plans [facility]. Place at week 3) Time Spent With Patient Time: Total time spent is greater than 50% in coordination of care (as documented) at patient's floor/unit and/or counseling patient: Exam : Bimanual exam- vagina & uterus: other (Uterus firm, nt @U)
[2021-10-30 08:00] VITALS: BP 130/82; PULSE 86; RESP 16; TEMP 36.1; O2SAT 100
[2021-10-30 08:02] LABS: Glucose Point of Care 142 mg/dl (65-105)
[2021-10-30] MEDS: MULTIVIT/MIN/PREN/FOL AC/IRON TABLET 1 TAB PO (08:20)
[2021-10-30] MEDS: DOCUSATE SODIUM 100 MG CAPSULE PO (08:20)
[2021-10-30] MEDS: metFORMIN HCL 500 MG TABLET 1000 MG PO ×2 (08:21→17:44)
--- NOTE | 2021-10-30 09:08 | WPDANLDPN2 ---
Anes-Prog Note L&D Date/Time: 10/30/21 09:08 Comfortable throughout: labor and delivery Neuraxial method: epidural Neuro status: Neuro function grossly intact. Cardiovascular status: normal Respiratory status: normal Airway patency: baseline Mental status: baseline Post-Op hydration status: normal Vital Signs: Last Vital Signs Temp 97 F L 10/30/21 08:00 Pulse 86 10/30/21 08:00 Resp 16 10/30/21 08:00 BP 130/82 10/30/21 08:00 Pulse Ox 100 10/30/21 08:00 Pain score (VAS): 10/01 I/O: Intake & Output 10/29/21 10/30/21 10/30/21 23:59 07:59 15:59 Intake Total 500 Output Total 1300 Balance -1300 500 Post-procedural complaints: none Patient feedback: Patient satisfied with anesthetic care.
--- NOTE | 2021-10-30 09:30 | PC.NURSE ---
0910 - Introductions were made and mother led the discussion of her desires and plan to breastfeed her baby. Reviewed handwashing to prevent infection before and after taking care of her baby. Mother verbalizes she is able to independently latch infant. Discussed how to watch for early feeding cues, place skin to skin, then feeding baby when is ready or every 2-3 hours aiming for 8-12 times in 24 hours. Mom went to the restroom while RN unwrapped/undressed . Infant shows late feeding cues. Reviewed positioning/alignment the visual use of the mom and baby guide. Encouraged mother with infant to the left breast in football position using nipple to nose with asymmetrical 140-degree latch. She denies any nipple discomfort. Reviewed there is to be no pain with , how to detach from the breast, visuals to watch for to confirm effective . Reviewed effective latching with resources mom and baby guide. Nipple tenderness is relieved with improving positioning and effective latching. Use of warm, wet compress to nipples and air dry for improved comfort. Infant was able to maintain effective latch. Mother voiced understanding to feed when she sees feeding cues, 8-12 times in 24 hours approximately every 2-3 hours from the start of the last feeding, how to stimulate infant skin to skin/colostrum feeding, if unable to wake to eat or she has discomfort with nursing. Reported to primary RN.
[2021-10-30 10:15] LABS: Glucose Point of Care 174 mg/dl (65-105)
[2021-10-30 11:50] VITALS: BP 135/79; PULSE 97; RESP 20; TEMP 36.2; O2SAT 98
[2021-10-30] MEDS: FAMOTIDINE 20 MG TABLET PO (12:27)
[2021-10-30] MEDS: IBUPROFEN 600 MG TABLET PO ×2 (12:31→20:13)
[2021-10-30 15:02] LABS: Glucose Point of Care 181 mg/dl (65-105)
[2021-10-30 16:30] VITALS: BP 132/82; PULSE 95; RESP 18; TEMP 36.4; O2SAT 99
--- NOTE | 2021-10-30 17:26 | PC.NURSE ---
Patient to view the discharge video Mother & Baby Care, The First Two Weeks online. Patient was given the opportunity and encouraged to ask questions. Patient verbalized understanding of information shared and has been given the mother/baby guide for home reference.
[2021-10-30 19:06] LABS: Glucose Point of Care 184 mg/dl (65-105)
[2021-10-30 20:15] VITALS: BP 128/89; PULSE 100; RESP 16; TEMP 36.7; O2SAT 98
[2021-10-30 22:27] LABS: Glucose Point of Care 151 mg/dl (65-105)
[2021-10-31] MEDS: IBUPROFEN 600 MG TABLET PO ×2 (03:56→09:48)
--- NOTE | 2021-10-31 07:31 | PM.OBPNVD ---
OB - PN: Subj Subjective Date/time seen: 10/31/21 07:31 Patient comments: no complaints and pain well controlled baby status: doing well and other (unable to be dc last pm) OB - PN: Obj Data Labs CBC & Chem 7: 10/30/21 03:23 10/29/21 08:31 Labs: Laboratory Results - last 24 hr 10/30/21 10/30/21 10/30/21 07:56 10:11 14:58 POC Capillary Glucose 142 H 174 H 181 H 10/30/21 10/30/21 19:02 22:21 POC Capillary Glucose 184 H 151 H OB - PN A/P Assessment and Plan (1) Type 2 diabetes mellitus during : Code(s): O24.119 - Pre-existing type 2 diabetes mellitus, in , unspecified trimester Status: Acute Assessment and Plan: continue metformin accuchecks high follow up with endocrine Plan day: 2 Plan: routine care Time Spent With Patient Time: Total time spent is greater than 50% in coordination of care (as documented) at patient's floor/unit and/or counseling patient: Exam : Bimanual exam- vagina & uterus: other (Uterus firm, nt @U)
[2021-10-31 08:05] VITALS: BP 137/89; PULSE 97; RESP 18; TEMP 36.6; O2SAT 99
--- NOTE | 2021-10-31 09:16 | PC.NURSE ---
7330 - Mother led the conversation with regards to her experience feeding her baby so far. Dad is holding infant showing feeding cues. has had adequate feedings in the past 24 hours and meets the outcomes for weight, output and jaundice. Mother states she feels confident to continue effectively her infant at home. Encouraged and reviewed feeding infant 8-12 times in 24 hours. Reviewed production of human milk, transition of milk, signs of adequate intake/output and engorgement prevention/relief and when to call the infant care provider using the mom and baby guide. Reviewed community resources and outpatient services as listed in the mom and baby guide. Reinforced watching for feeding cues with responsive feeding and how to stimulate infant to initiate feeding three hours from the start of the last feeding. Mother voiced understanding of information shared and demonstrated skin to skin ,then effectively latched to the left breast with football positioning and states there no discomfort. Reported to primary RN.
[2021-10-31 09:42] LABS: Glucose Point of Care 151 mg/dl (65-105)
[2021-10-31] MEDS: MULTIVIT/MIN/PREN/FOL AC/IRON TABLET 1 TAB PO (09:48)
[2021-10-31] MEDS: metFORMIN HCL 500 MG TABLET 1000 MG PO (09:48)
[2021-10-31] MEDS: FAMOTIDINE 20 MG TABLET PO (09:48)
[2021-10-31 10:52] LABS: Glucose Point of Care 157 mg/dl (65-105)
[2021-11-01 11:23] VITALS: BP 148/79; PULSE 94; RESP 20; TEMP 36.8; O2SAT 100
== END 2021-10-31 13:28 | disposition home or self-care (01) | DRG 560 ==
LOC: ANHLDR 19:24 → ANHOB2 23:02
PROVIDERS: Admitting Provider Obstetrics & Gynecology Gynecology; Visit Provider Obstetrics & Gynecology Gynecology
DX: O24.424 Gestational diabetes mellitus in childbirth, insulin controlled (principal); O76 Abnormality in fetal heart rate and rhythm complicating labor and delivery; O71.82 Other specified trauma to perineum and vulva; O40.3XX0 Polyhydramnios, third trimester, not applicable or unspecified; Z3A.39 39 weeks gestation of pregnancy; Z37.0 Single live birth
CPT/HCPCS: 36415; 80053; 82948; 85014; 85018; 85025; 86592; 86850; 86900; 86901; 88307; A9270; J1815; J2405; J2590; J2795; J7120